=== PATIENT | male | born 1960 | race Caucasian/White ===

== ENCOUNTER 2024-05-22 09:10 | Emergency (ER) | payer OTHER, SELFPAY ==
[2024-05-22] VITALS (8 sets, daily range): BP systolic 86–119; BP diastolic 51–66
--- NOTE | 2024-05-22 09:50 | EDRN ---
Dr. Lemus in room w/ pt at this time.
[2024-05-22 09:51] LABS: % Eosinophils 1.7 % (0-6); % Immature Granulocytes 0.6 % (0-0.5); % Lymphocytes 17.7 % (20.5-51.1); % Monocytes 13.5 % (1.7-9.3); % Neutrophils 65.5 % (42.2-75.2); Absolute Basophils 0.1 10^3/uL (0-0.2); Absolute Eosinophils 0.1 10^3/uL (0-0.7); Absolute Lymphocytes 1.3 10^3/uL (1.2-3.4); Absolute Neutrophils 4.6 10^3/uL (1.4-6.5); Hematocrit 42.7 % (39.0-52.0); Hemoglobin 13.7 g/dL (13.0-18.0); Mean Corp Hgb Conc. 32.1 g/dL (33.0-37.0); Mean Corpuscular Hgb 29.6 pg (27.0-31.0); Mean Corpuscular Volume 92.2 fL (80.0-94.0); Nucleated Red Blood Cells % 0 % (-); Platelet Count 354 10^3/uL (130-400); Red Blood Cell Count 4.63 10^6/uL (4.70-6.10); Red Cell Dist. Width 16.6 % (11.5-14.5); White Blood Cell Count 7.1 10^3/uL (4.8-10.8)
[2024-05-22] MEDS: NSS 500 IV (09:55)
--- NOTE | 2024-05-22 09:56 | ED.GENMED ---
History of Present Illness
General
Chief Complaint: Fainting Sensation
Source: patient
Exam Limitations: none
Time Seen by Provider: 05/22/24 09:17
Nursing documentation reviewed up to this point in time: agreed with
History of Present Illness
History of Present Illness:
The patient is a 64-year-old man with a past medical history of mechanical valve replacement, coronary artery disease, hyperlipidemia and hypertension, on Coumadin, who reports that he did not drink much today or eat anything but took his
medications. He reports that his dog wanted to go for a walk and while bending over to clean up his dogs bowel movement, he felt lightheaded and fell down onto his knees. Patient reports he did not hit his head. He denies neck pain, chest pain
and back pain. Patient reports he was able to get up and walk after the fall. Patient reports that he has had multiple episodes of lightheadedness with positional changes in the past. Patient reports he is here because his left knee is bleeding
and he was concerned it 'might need a stitch.' He reports he otherwise feels much better. Patient systolic blood pressures in the 80s. He admits he probably should have eaten and drank with his medications.
Past History
Past History
ED Past Medical History: CAD, Cancer, HTN and Hypercholesterolemia
ED Past Surgical History: Cardiac, Tonsilectomy and Other (Splenectomy)
Social History
Tobacco: Non-smoker
Alcohol: None
Drug: None
Personal:
Living: with family
Employment: Other
Family History
Family History: Other
Review of Systems
Review of Systems
Allergies reviewed?: Yes
All Other Systems: ROS reviewed and negative except as documented in HPI and ROS
Constitutional: Reports no symptoms
EENT: Reports no symptoms
Respiratory: Reports no symptoms
Cardiac: Reports other (Presyncope, lightheadedness, no loss of consciousness)
ABD/GI: Reports no symptoms
: Reports no symptoms
Musculoskeletal: Reports no symptoms
Skin: Reports other (Abrasion left patellar area of knee)
Neurological: Reports weakness (Generalized weakness in legs while he felt lightheaded)
Endocrine: Reports no symptoms
Hematologic/Lymphatic: Reports no symptoms
Psychiatric: Reports no symptoms
Phy Exam
Physical Exam
Physical Exam:
Physical Exam
General: no apparent distress, not acutely ill. Atraumatic appearing face and head
Neck: supple. No meningismus. Nontender
Heart: s1/s2 regular rate and rhythm,
Lungs: no acute respiratory distress. clear bilaterally. No vertebral spine tenderness
Abdomen: normal bowel sounds. not tender. no CVAT
Neuro: alert and oriented. no focal neurological deficits. 5 out of 5 strength in all extremities.
Skin: 2 areas of abrasion left patellar knee
Psychiatric: well kept. interactive and cooperative
Extremities: Atraumatic upper and lower extremities except for abrasions on left patellar knee. No bony tenderness of left lower extremity or any other extremity. Able to fully bend left knee without difficulty. Strong
pulses in bilateral upper and lower extremities
Course
Orders/Labs/Results
Orders:
Orders
05/22/24 09:28
Electrocardiogram (*1) Urgent
Reason for Study: Vertigo / Dizzy
EKG- Treatment ONCE
05/22/24 09:44
Complete Blood Count/With Diff Urgent
Comprehensive Metabolic Panel Urgent
Prothrombin Time Urgent
Troponin I Urgent
05/22/24 09:54
0.9% Sodium Chloride 500 ml [Nss] 500 ml IV BOLUS
Abnormal Lab Results
05/22/24
09:44
RBC 4.63 L 10^6/uL
(4.70-6.10)
MCHC 32.1 L g/dL
(33.0-37.0)
RDW 16.6 H %
(11.5-14.5)
Absolute Monos (auto) 1.0 H 10^3/uL
(0.1-0.6)
Immature Gran % 0.6 H %
(0-0.5)
Lymphocytes % 17.7 L %
(20.5-51.1)
Monocytes % 13.5 H %
(1.7-9.3)
PT 29.8 H Sec
(11.4-14.6)
Carbon Dioxide 31 H mmol/L
(22-30)
BUN 30 H mg/dl
(9-20)
Total Bilirubin 1.4 H mg/dl
(0.2-1.3)
05/22/24 09:44
05/22/24 09:44
Vital Signs
Initial and Last Documented VS:
Initial Vital Signs
Temp Pulse Resp BP Pulse Ox
98.2 F 68 16 119/63 98
05/22/24 09:13 05/22/24 09:13 05/22/24 09:13 05/22/24 09:13 05/22/24 09:13
Last Documented Vital Signs
Temp Pulse Resp BP Pulse Ox
98.2 F 73 21 116/62 98
05/22/24 09:13 05/22/24 12:00 05/22/24 12:00 05/22/24 12:00 05/22/24 12:00
MDM/Problems Addressed
Differential Diagnosis Includes:
Orthostatic presyncope, vasovagal presyncope, anemia, hyponatremia, dehydration
MDM/Problems Addressed:
Patient presents with acute lightheadedness that is now better
Chronic conditions affecting care: HTN
Acute Exacerbation and/or Progression of Chronic Illness:
Patient likely has acute exacerbation of his chronic orthostatic dizziness
*Pulse Oximetry
Patient hypoxic: no
*EKG
Interpreted by ED Provider?: Yes
Interpretation: abnormal
Comparison EKG: no comparison EKG present
Rate: normal
Rhythm: sinus
Celina: normal axis
Interval: normal interval
QRS Pattern: normal QRS
Ischemia: T-wave inversion
*[employer] Operator Interpretation
Rate: normal
Interpretation: normal
Rhythm: sinus
*Critical Care Note
Total Time (30-74mins, 75-104mins- exclusive of procedures): Not Applicable
Data Reviewed
Review of Other/Old Records Reveals: Other (I reviewed patient's medication records and found that he had a tetanus shot given in 2021 here in the ED)
Source: patient and family
Update Note
Update Note:
12:00 PM patient reports he feels very well. Patient sitting up and standing up without lightheadedness. Blood pressure is still on the lower side with systolics in the low 100s. Patient reports his baseline blood pressure is systolic in the
110s. Patient encouraged to hold off on blood pressure medication tonight if his blood pressure at home is below 110 systolic. Patient reports that he is followed by hand spring repairer at [place] who is very responsive and he will discuss the low blood
pressure on the phone tomorrow with him.
Patient has not no fevers or chills to suggest sepsis. His lungs are clear and there is no sign of pneumonia. I suspect this is blood pressure medication related
ED Attending Note
-
Portions of this chart may have been created with voice recognition software.� Occasional wrong word or��sound alike� substitutions may have occurred due to the inherent limitations of voice recognition software.
Discharge Plan
Departure
Patient Disposition: Home (Routine Discharge)
Date of Disposition: 05/22/24
Time of Disposition: 11:57
Patient with high blood pressure during this ER visit?: Yes
Condition: Good
Covid-19: Not Applicable
Discharge Problem:
Orthostatic dizziness, Abrasion of knee, left
Instructions: Orthostatic hypotension, Near Fainting (DC), Abrasions - ED discharge instructions
Prescriptions:
No Action
furosemide 40 MG tablet
40 mg PO DAILY
clopidogrel 75 MG tablet
75 mg PO DAILY
spironolactone 12.5 MG tablet
25 mg PO DAILY
isosorbide dinitrate 30 MG tablet
30 mg PO DAILY
pantoprazole 40 MG tablet,delayed release (DR/EC)
40 mg PO DAILY
metoprolol tartrate 50 MG tablet
50 mg PO BID
folic acid 1 MG tablet
1 tab PO DAILY
warfarin 2.5 mg Tablet
2.5 mg PO DAILY
losartan 25 mg Tablet
25 mg PO DAILY
rosuvastatin 40 mg Tablet
40 mg PO DAILY
Referrals:
Russ Ramos MD [Family Provider] -
Activity Restrictions/Additional Instructions:
Eat a good protein meal when you get home. Please call your hand spring repairer within 24 hours to discuss your low blood pressure. When you arrived today, your systolic blood pressure was very low in the 80s. If your systolic blood pressure tonight is
below 110, please do not take any of your blood pressure medication tonight. Please change positions very slowly.
It is best if you keep your left knee abrasion covered and dry for 1 to 2 days. After that, you can take off the bandage, apply antibiotic ointment once a day, and cover with a Band-Aid
Interventions
Interventions:
*Risk Screen - Suicide Last Done: 05/22/24 09:13
*General Assessment Last Done: 05/22/24 09:34
*Neglect/Abuse Screening Last Done: 05/22/24 09:13
ED- Fall Risk Assessment Last Done: 05/22/24 09:34
*ED COVID-19 Vaccine History Last Done: 05/22/24 09:34
ED- Cardiac Assessment Last Done: 05/22/24 10:07
ED- Neurological Assessment Last Done: 05/22/24 10:07
Discharge Date and Time
Print Language: TELUGU
[2024-05-22 10:00] LABS: INR 2.85; PT 29.8 Sec (11.4-14.6)
--- NOTE | 2024-05-22 10:00 | EDRN ---
2 abrasions to L knee extensively cleansed and irrigated w/ saline then L knee dressed w/ double antibiotic ointment, telfa, couple of sterile [id number]'s, kerlix and liam wrap w/ ice applied to knee.
--- NOTE | 2024-05-22 10:21 | EDRN ---
Pt given cup of water and animal crackers as this RN was requested by Dr. Lemus to give pt something to eat.
[2024-05-22 10:48] LABS: ALT (SGPT) 15 U/L (0-50); AST (SGOT) 32 U/L (17-59); Albumin 4.1 g/dl (3.5-5.0); Alkaline Phosphatase 85 U/L (38-126); Blood Urea Nitrogen 30 mg/dl (9-20); Carbon Dioxide 31 mmol/L (22-30); Chloride 100 mmol/L (98-107); Glucose 94 mg/dl (70-99); Potassium 4.5 mmol/L (3.5-5.1); Sodium 137 mmol/L (135-145); Total Bilirubin 1.4 mg/dl (0.2-1.3); Total Protein 7.4 g/dl (6.3-8.2); eGFR > 60.00
[2024-05-22 10:49] LABS: Troponin I < 0.012 ng/ml
--- NOTE | 2024-05-22 11:49 | EDRN ---
Dr. Lemus in room w/pt at this time.
== END 2024-05-22 12:17 | disposition home or self-care (01) ==
LOC: EMR 09:10
PROVIDERS: EMERGENCY PHYSICIAN Emergency Medicine; FAMILY PHYSICIAN Family Medicine
DX: R42 Dizziness and giddiness (principal); S80.212A Abrasion, left knee, initial encounter; W19.XXXA Unspecified fall, initial encounter; I25.10 Atherosclerotic heart disease of native coronary artery without angina pectoris; I10 Essential (primary) hypertension; E78.00 Pure hypercholesterolemia, unspecified; Z79.01 Long term (current) use of anticoagulants; Z95.2 Presence of prosthetic heart valve
CPT/HCPCS: 99284; 96360; 96361; 80053; 84484; 85025; 85610; 93005